=== PATIENT | male | born 1965 | race Caucasian/White ===

== ENCOUNTER 2021-08-17 11:35 | Emergency (ER) | payer OTHER ==
[~2021-08-17] VITALS: Ht 170.2 cm; Wt 95.3 kg
[2021-08-17] MEDS ORDERED: KETO10TA2 PO (14:09)
[2021-08-17] MEDS ORDERED: ZOVIRAX800 MG PO (14:09)
== END 2021-08-17 14:20 | disposition home or self-care (01) ==
LOC: ER 11:35
DX: B02.8 Zoster with other complications (principal)